=== PATIENT | male | born 1945 | race Caucasian/White ===

== ENCOUNTER → 2017-08-16 | Day surgery (SDC) | payer MEDICARE, OTHER ==
[~2017-08-16] MED LIST: AMLODIPINE BESY10 MG PO; ASPIR 8181 MG PO; ATORVASTATIN CA20 MG PO; CIPRO250 MG PO; DAILY VALUE1 EACH PO; DEXAMETHASONE SOD PHOS INJ 4 MG/ML VIAL ONE; FENTANYL CITRATE/PF 100MCG/2 ML INJ ONE; HYDROCODON-ACE1 EA12 PO; INVOKANA PO; LEVOFLOXACIN 500MG/D5W 100ML 100 ML IV ONE; LIDOCAINE HCL 2% LOCAL INJ 5 ML SDV VIAL INJ ONE; MELOXICAM15 MG PO; METFORMIN HCL500 MG PO; MIDAZOLAM HCL 2 MG/2 ML VIAL ONE; NIACIN500 M2 PO; ONDANSETRON HCL INJ 2 MG/ML VIAL ONE; PHENYLEPHRINE HCL 1% 10 MG/ML VIAL ONE; PROPOFOL IV EMULSION 10 MG/ML 20 ML VIAL ONE; SEVOFLURANE INHAL SOLN 250 ML PEN BTL ONE; TAMSULOSIN HCL0.4 MG PO; TRAMADOL-ACETAMI1 EA PO; TRESIBA SQ; VESICARE5 MG PO; VITAMIN D31000 UNIT PEG; VITAMIN D35000 UNIT PO
--- NOTE | 2017-08-16 14:30 | Operative Report ---
DATE OF PROCEDURE: August 16, 2017 PREOPERATIVE DIAGNOSIS: Left renal calculi times 2, mid calyx. A. 8 x 6 mm. B. 5 x 7 mm. POSTOPERATIVE DIAGNOSIS: Left renal calculi times 2, mid calyx. A. 8 x 6 mm. B. 5 x 7 mm. PROCEDURE: Left renal extracorporeal shock wave lithotripsy to the larger of the 2 calculi with partial fragmentation. VP SCIENTIFIC: Dr. Bazzi. ANESTHETIC: General. INDICATIONS: Mr. Serrano is a 71-year-old male who presented with a chief complaint of pain on the left side. Workup showed that he has 2 calculi in the mid caliceal area of the left kidney. The first one measured about 6 x 8 mm and the second one measured about 5 x 7 mm. PROCEDURE: This patient was placed on the table in the supine position and the stone, the larger of the 2, was brought into position between F1 and F2 of the fluoroscopic monitor. The lithotripsy was started, starting at 2 kV and slowly and gradually increased to 7 kV. Observation of the stone pulverization was done at 200 to 250 shocks intermittently. At 3000 shocks, it was felt that the stone was fairly big and very hard and solid. One thousand more shocks were delivered to the stone and still the stone started pulverizing, but not quite. There was a good size center that was still hard. The lithotripsy was then stopped. Patient was taken to the recovery room in satisfactory condition after tolerating the procedure well. Plan for this patient is to return to the office in 2 weeks when at that time, a KUB will be performed and we will proceed with whatever indicated procedure to finish the 2 stones. Plan for this patient is to be placed on Levaquin 500 mg once a day for 1 week. He is already on Whitney for chronic pain. Job#: [id number] SAK
== END | disposition home or self-care (01) ==
LOC: OR 07:43
PROVIDERS: ATTEND Specialist
DX: N20.0 Calculus of kidney (principal); I10 Essential (primary) hypertension; E78.5 Hyperlipidemia, unspecified; E11.9 Type 2 diabetes mellitus without complications; Z79.82 Long term (current) use of aspirin
CPT/HCPCS: 36415; 50590; 82948; J1100; J1956; J2001; J2250; J2370; J2405